=== PATIENT | male | born 1930 | race Caucasian/White ===

== ENCOUNTER → 2017-12-02 | Outpatient (CLI) | payer MEDICARE ==
[~2017-12-02] MED LIST: BALANCED SALT SOLN OPHT IRRIG 15 ML BTL ONE; FLUOROMETHOLONE 0.25% OPHT SUSP 5 ML BTL ONE; PROPARACAINE HCL 0.5% OPHT SOLN 15 ML BTL ONE
--- NOTE | 2017-12-02 15:43 | MP ---
cc: Nikunj Watkins MD DATE OF OPERATION: 12/02/2017 POSTOPERATIVE DIAGNOSIS: Chronic open angle glaucoma left eye. OPERATION: Argon laser trabeculoplasty left eye. ANESTHESIA: Topical. COMPLICATIONS: None. INDICATIONS: See history and physical previously dictated. PROCEDURE: The patient arrived at [facility]. Blood pressure was 93/52, pulse 59, respirations 20. The patient was seated at the Argon laser. A drop of Ophthaine was instilled in the left eye and a single mirror Gonio lens was placed on the anterior surface of the left cornea. Argon laser trabeculoplasty was then carried out. First, 70 exposures were placed at the junction of the pigmented and nonpigmented trabecular meshwork. The exposure time was 0.1 second, spot size was 50 microns, power was 1,000 milliwatts. Then, I did 30 more spots of 50 micron spot size, 0.1 seconds exposure time and 900 milliwatts of power. The patient tolerated the procedure well. The patient was given a prescription for topical steroids to be used q.i.d. in the left eye postoperatively, and has an appointment for follow up on the first postoperative day in my office. The patient was given written postoperative instructions. The patient left the [facility] in satisfactory condition. MD RACHEL Patel/SB , 02:10 PM , 03:41 PM
--- NOTE | 2017-12-03 08:16 | MH ---
cc: Nikunj Watkins MD DATE OF ADMISSION: 12/02/2017 ADMISSION DIAGNOSIS: Chronic open angle glaucoma. HISTORY OF PRESENT ILLNESS: This 87-year-old white male is coming to [facility] for the purpose of an argon laser trabeculoplasty of the left eye due to uncontrolled chronic open angle glaucoma with medication alone. PAST MEDICAL HISTORY: The patient has a history of hypertension and asthma. He also has the chronic open angle glaucoma in both eyes, but not well controlled in the left eye. He is currently taking latanoprost eyedrops at bedtime and Alphagan-P twice a day in the left eye. in both eyes and discontinued his Alphagan-P, which was not helping at all in that left eye. in both eyes, but the left eye remains uncontrolled. PAST SURGICAL HISTORY: The patient has a history of gallbladder surgery, knee replacement, bilateral cataract surgery, retinal repair in the left eye, and aortic valve replacement. DAILY MEDICATIONS: Include warfarin, omeprazole, metoprolol, pravastatin, ramipril, probiotics, multivitamins, escitalopram, Tylenol p.r.n., and Ventolin. ALLERGIES: HE IS ALLERGIC TO PENICILLIN AND SULFA. SOCIAL HISTORY: Noncontributory. FAMILY HISTORY: Noncontributory. REVIEW OF SYSTEMS: Noncontributory. OCULAR EXAMINATION: The patient's visual acuity with correction is 20/30 in the right eye and 20/25 in the left. Visual garibay are noted to have a left inferior quadrant defect in both eyes. Pupils are 3 mm, equal, round, and reactive to light without afferent defect. Anterior segment examination revealed posterior chamber intraocular lens in place bilaterally with open posterior capsules. Deep anterior chamber on gonioscopy of the left eye. A posterior chamber intraocular lens is in place. The intraocular pressure is 21 in the right eye and 29 in the left by applanation tonometry. 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 The macula is clear bilaterally. A posterior vitreous detachment is present in the right eye. There is a scar superior to the optic nerve in the left eye and in the periphery at the 1 o'clock position is a chorioretinal scar as well. IMPRESSION: 1. Chronic open angle glaucoma, moderate right eye, severe left eye. 2. Pseudophakia, both eyes. 3. Posterior vitreous detachment, right eye. 4. 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 PLAN: Argon laser trabeculoplasty of the left eye through [facility]. MD RACHEL Patel/OLIVIA/tiffany , 02:36 PM , 03:33 PM
== END ==
LOC: PHSDC 10:28
PROVIDERS: ATTEND Ophthalmology
DX: H40.1120 Primary open-angle glaucoma, left eye, stage unspecified (principal)